=== PATIENT | male | born 1950 | race Caucasian/White ===

== ENCOUNTER → 2018-10-28 | Outpatient (CLI) | payer MEDICARE ==
--- NOTE | 2018-10-29 09:26 | KCIC ---
UPPER EXT JOINT WO CONT LEFT dated 10/28/2018 4:15 PM Indication: Chronic left wrist pain no known injury. .. Comparison: No comparison is available. Technique: Routine multiplanar multisequence imaging performed. . Findings: There are mild hypertrophic changes at the radiocarpal joint with erosive changes at the volar margin of the scaphoid waist and mid volar aspect of the triquetrum. Small cystic changes within the scaphoid and triquetrum suspected full-thickness cartilage loss at the proximal aspect of the capitate bone with mild subcortical edema. There is also probable full-thickness cartilage loss of the proximal pole of the scaphoid. Mild degenerative change of the scaphotrapezial joint and first carpometacarpal joint and pisotriquetral joint. . No significant joint effusion. No apparent intra-articular loose body. Small erosion at the radial styloid. The triangular fibrocartilage complex is intact. No focal perforation. The dorsal and volar radial ulnar attachments are intact. Styloid and foveal attachments intact. Scapholunate and lunotriquetral ligaments are intact. No scapholunate dissociation. Flexor and extensor tendons are intact. Mild increased signal within the extensor carpi ulnaris. Carpal tunnel and Guyon's canal unremarkable. IMPRESSION: 1. No evidence of internal derangement. 2. Degenerative changes as described above. There are also small erosions within the carpal bones and radial styloid for which underlying inflammatory arthropathy is not excluded. Correlate clinically. 3. Mild ECU tendinosis. Electronically signed by: Marcos Stoll MD (10/29/2018 9:23 AM) [facility] [place]
== END | disposition home or self-care (01) ==
LOC: KCIC MRI 15:50
PROVIDERS: ATTEND Orthopaedic Surgery
DX: M19.032 Primary osteoarthritis, left wrist (principal); M89.38 Hypertrophy of bone, other site; M85.88 Other specified disorders of bone density and structure, other site; Z88.8 Allergy status to other drugs, medicaments and biological substances; G89.29 Other chronic pain
CPT/HCPCS: 73221